=== PATIENT | male | born 1970 | race Caucasian/White ===

== ENCOUNTER 2019-04-15 18:12 | Emergency (ER) | payer BC ==
[~2019-04-15] VITALS: Ht 172.7 cm; Wt 103.6 kg
[2019-04-15 18:13] VITALS: BP 158/95
--- NOTE | 2019-04-15 18:20 | NUR ---
PT C/O TOOTHACHE IN BOTTOM RIGHT SIDE OF MOUTH, STATES HAS BEEN HAVING ABOUT A WEEK AND A HALF, PT STATES HE HAS AN APPOINTMENT FOR DENTIST ON MONDAY, BUT THE PAIN FLARED UP TODAY +
[2019-04-15] MEDS ORDERED: HYDROcodone/APAP 5/325 TABLET PO STA (18:40)
[2019-04-15] MEDS ORDERED: HYDROcodone/APAP 5/325 TABLET ONE (18:42)
== END 2019-04-15 18:56 ==
LOC: ED 18:50
DX: K08.89 Other specified disorders of teeth and supporting structures (principal); I10 Essential (primary) hypertension; E11.9 Type 2 diabetes mellitus without complications
CPT/HCPCS: 99283

== ENCOUNTER 2020-11-26 12:57 | Emergency (ER) | payer BC ==
[~2020-11-26] VITALS: Ht 172.7 cm; Wt 103.1 kg
--- NOTE | 2020-11-26 13:22 | NUR ---
PT C/O RIGHT FOOT SWELLING, REDNESS AND CLOSED WOUND. PT STATES RIGHT FOOT PAIN 04/24. PT HAS A HX OF DIABETES AND RIGHT TOE AMPUTATION. PT STATES HE NOTICED THE WOUND THIS AM, UNSURE HOW IT HAPPENED. WOUND IS WARM TO TOUCH AND REDNESS CIRCLING THE WOUND. WOUND IS SCABBED APPROX 1 INCH IN DIAMETER.
--- NOTE | 2020-11-26 13:27 | NUR ---
POSITIVE CMS IN LOWER EXT. POSITIVE ROM.
[2020-11-26 14:32] LABS: BASOPHILS % (AUTO) 1 % (0-1); EOSINOPHILS % (AUTO) 1 % (1-7); LYMPHOCYTES % (AUTO) 19 % (22-44); MEAN CORPUSCULAR HEMOGLOBIN 27.8 pg (27.5-34.5); MEAN CORPUSCULAR HGB CONC 33.6 g/dL (33.2-36.2); MEAN PLATELET VOLUME 6.8 fL (7.4-10.4); MONOCYTES % (AUTO) 8 % (2-9); NEUTROPHILS % (AUTO) 72 % (42-75); PLATELET COUNT 344 x10^3/uL (130-400); RED BLOOD COUNT 4.11 x10^6/uL (4.38-5.82); RED CELL DISTRIBUTION WIDTH 14.4 % (9.4-14.8)
[2020-11-26 14:33] LABS: MD NO
[2020-11-26 14:36] LABS: ANION GAP 8 mmol/L (5-15); CHLORIDE 109 mmol/L (98-107); CREATININE 1.27 mg/dL (0.7-1.3)
[2020-11-26 14:37] LABS: ALBUMIN 3.7 g/dL (3.4-5.0)
[2020-11-26 15:30] VITALS: BP 135/83
--- NOTE | 2020-11-26 15:30 | NUR ---
PT REC'VD DISCHARGE INSTRUCTIONS AND EDUCATION. PT HAD NO FURTHER QUESTIONS. PT AMBULATED TO DC AREA, STEADY GAIT.
== END 2020-11-26 15:32 | disposition home or self-care (01) ==
LOC: ED 15:25
DX: L03.115 Cellulitis of right lower limb (principal); M79.671 Pain in right foot; I10 Essential (primary) hypertension; E11.9 Type 2 diabetes mellitus without complications
CPT/HCPCS: 36415; 80048; 82040; 85025; 99284